=== PATIENT | female | born 1985 ===

== ENCOUNTER 2022-04-19 03:30 | Inpatient (IN) | payer BC ==
[~2022-04-19] VITALS: Ht 165.1 cm; Wt 97.1 kg
[2022-04-19] MEDS ORDERED: AMPICILLIN 2,000 MG in NACL 0.9% MINI-BAG PLUS 100 ML IV SCH (03:35)
[2022-04-19] MEDS ORDERED: METHYLERGONOVINE 0.2 MG/ML AMP IM PRN ×2 (03:35→11:35)
[2022-04-19] MEDS ORDERED: LACTATED RINGERS 500 ML IV SCH (03:35)
[2022-04-19] MEDS ORDERED: CARBOPROST 250 MCG/ML AMP IM PRN (03:35)
[2022-04-19] MEDS ORDERED: OXYTOCIN 20 UNITS in LACTATED RINGERS 1,000 ML IV SCH ×2 (03:35→11:35)
[2022-04-19] MEDS ORDERED: AMPICILLIN 2,000 MG VIAL ONE (03:40)
[2022-04-19 03:59] LABS: BASOPHILS # (AUTO) 0.1 K/uL (0.00-0.22); BASOPHILS % (AUTO) 0.6 % (0.0-2.0); EOSINOPHILS # (AUTO) 0.1 K/uL (0-0.4); EOSINOPHILS % (AUTO) 0.5 % (0.0-4.0); HEMATOCRIT 35.4 % (36-48); HEMOGLOBIN 11.7 g/dL (12.0-16.0); LYMPHOCYTES # (AUTO) 2.2 K/uL (2.5-16.5); MEAN CORPUSCULAR HEMOGLOBIN 27 pg (27-31); MEAN CORPUSCULAR HGB CONC 33 g/dL (33-37); MEAN CORPUSCULAR VOLUME 82.9 fL (80-94); MONOCYTES # (AUTO) 0.9 K/uL (0.8-1.0); MONOCYTES % (AUTO) 5.4 % (1.7-9.3); NEUTROPHILS # (AUTO) 12.7 K/uL (1.8-7.7); NEUTROPHILS % (AUTO) 79.5 % (42.2-75.2); PLATELET COUNT (AUTO) 324 K/uL (140-450); RED BLOOD CELL COUNT(AUTO) 4.26 MIL/uL (4.20-5.40); RED CELL DISTRIBUTION WIDTH 14.9 % (11.6-13.7); WHITE BLOOD COUNT (AUTO) 15.9 K/uL (4.8-10.8)
[2022-04-19 04:01] LABS: APPEARANCE,URINE CLEAR (CLEAR); BILIRUBIN,URINE NEGATIVE (NEGATIVE); BLOOD, URINE 1+ (NEGATIVE); COLOR,URINE YELLOW (YELLOW); LEUKOCYTE ESTERASE ,URINE NEGATIVE (NEGATIVE); NITRITE, URINE NEGATIVE (NEGATIVE); PH,URINE 6.5 (5.0-9.0); UGLUCOSE NEGATIVE (NEGATIVE)
[2022-04-19 04:12] LABS: RBC,URINE 0-5 /HPF (0-5)
[2022-04-19 04:13] LABS: BARBITURATE, URINE NEGATIVE ng/ml (NEG <=200); BENZODIAZEPINE, URINE NEGATIVE ng/mL (NEG <=200); CANNABINOID, URINE NEGATIVE ng/mL (NEG <=50); COCAINE, URINE NEGATIVE ng/mL (NEG <=300); OPIATE, URINE NEGATIVE ng/mL (NEG <=2000); PHENCYCLIDINE SCREEN,URINE NEGATIVE ng/mL (NEG <=25)
[2022-04-19 04:14] VITALS: BP 113/66
[2022-04-19 04:20] LABS: ALBUMIN 2.6 g/dL (3.4-5.0); ANION GAP 17.9 (8-16); CREATININE 0.7 mg/dL (0.6-1.3); POTASSIUM 3.9 mmol/L (3.5-5.1); PROTHROMBIN TIME 9.1 secs (10.8-13.4); TOTAL BILIRUBIN 0.2 mg/dL (0.0-1.0)
[2022-04-19] MEDS: LACTATED RINGERS 1,000 ML IV SCH ×2 (04:58→20:25)
[2022-04-19] MEDS: NALBUPHINE 10 MG/ML AMP IVP PRN ×2 (06:18→08:53)
[2022-04-19] MEDS ORDERED: AMPICILLIN 1,000 MG VIAL ONE (07:32)
[2022-04-19] MEDS ORDERED: OXYTOCIN 20 UNITS/LR PREMIX 1,000 ML IV ONE ×2 (07:33→17:50)
[2022-04-19] MEDS ORDERED: AMPICILLIN 1,000 MG in NACL 0.9% MINI-BAG PLUS 50 ML IV SCH (08:00)
[2022-04-19] MEDS ORDERED: CITRIC ACID/SODIUM CITRATE 30 ML UDC PO SCH (11:12)
[2022-04-19] MEDS ORDERED: KETOROLAC 30 MG/ML VIAL IVP PRN (11:35)
[2022-04-19] MEDS ORDERED: TEMAZEPAM 15 MG CAP PO PRN (11:35)
[2022-04-19] MEDS ORDERED: IBUPROFEN 800 MG TAB PO PRN (11:35)
[2022-04-19] MEDS ORDERED: oxyCODONE/APAP 5/325 MG 1 TAB TAB PO PRN (11:35)
[2022-04-19] MEDS ORDERED: ceFAZolin 2,000 MG VIAL ONE (11:36)
[2022-04-19] MEDS ORDERED: MORPHINE PRES FREE 10 MG/10 ML AMP IV ONE (11:57)
[2022-04-19] MEDS ORDERED: METOCLOPRAMIDE 10 MG/2 ML INJ VIAL IVP PRN (13:15)
[2022-04-19] MEDS ORDERED: ONDANSETRON 4 MG/2 ML VIAL IVP PRN (14:55)
[2022-04-19] MEDS ORDERED: diphenhydrAMINE 50 MG/ML VIAL IVP PRN (14:55)
[2022-04-19] MEDS ORDERED: NALOXONE 0.4 MG/ML VIAL IVP PRN ×3 (14:55)
[2022-04-19] MEDS ORDERED: NALBUPHINE 10 MG/ML AMP IVP PRN (14:55)
[2022-04-19] MEDS: KETOROLAC 30 MG/ML VIAL IM/IVP SCH (18:02)
[2022-04-19 20:57] LABS: BASOPHILS # (AUTO) 0.1 K/uL (0.00-0.22); BASOPHILS % (AUTO) 0.3 % (0.0-2.0); EOSINOPHILS % (AUTO) 0.2 % (0.0-4.0); HEMATOCRIT 29.5 % (36-48); HEMOGLOBIN 9.8 g/dL (12.0-16.0); LYMPHOCYTES # (AUTO) 2.3 K/uL (2.5-16.5); LYMPHOCYTES % (AUTO) 12.9 % (20.5-51.1); MEAN CORPUSCULAR HEMOGLOBIN 28 pg (27-31); MEAN CORPUSCULAR HGB CONC 33 g/dL (33-37); MEAN CORPUSCULAR VOLUME 84.2 fL (80-94); MONOCYTES # (AUTO) 0.9 K/uL (0.8-1.0); NEUTROPHILS # (AUTO) 14.6 K/uL (1.8-7.7); NEUTROPHILS % (AUTO) 81.6 % (42.2-75.2); PLATELET COUNT (AUTO) 267 K/uL (140-450); RED BLOOD CELL COUNT(AUTO) 3.51 MIL/uL (4.20-5.40); RED CELL DISTRIBUTION WIDTH 14.8 % (11.6-13.7); WHITE BLOOD COUNT (AUTO) 17.9 K/uL (4.8-10.8)
[2022-04-19] MEDS: DOCUSATE SOD/SENNA 50/8.6 MG 1 TAB PO SCH (21:00)
[2022-04-20] MEDS: KETOROLAC 30 MG/ML VIAL IM/IVP SCH ×2 (00:11→06:20)
[2022-04-20] MEDS ORDERED: OXYTOCIN 20 UNITS/LR PREMIX 1,000 ML IV ONE (02:56)
[2022-04-20 08:45] LABS: BASOPHILS % (AUTO) 0.2 % (0.0-2.0); EOSINOPHILS # (AUTO) 0.1 K/uL (0-0.4); EOSINOPHILS % (AUTO) 0.9 % (0.0-4.0); HEMOGLOBIN 8.7 g/dL (12.0-16.0); LYMPHOCYTES # (AUTO) 2.1 K/uL (2.5-16.5); LYMPHOCYTES % (AUTO) 15.2 % (20.5-51.1); MEAN CORPUSCULAR HEMOGLOBIN 28 pg (27-31); MEAN CORPUSCULAR HGB CONC 34 g/dL (33-37); MEAN CORPUSCULAR VOLUME 83.1 fL (80-94); MONOCYTES # (AUTO) 0.8 K/uL (0.8-1.0); MONOCYTES % (AUTO) 5.5 % (1.7-9.3); NEUTROPHILS # (AUTO) 10.8 K/uL (1.8-7.7); NEUTROPHILS % (AUTO) 78.2 % (42.2-75.2); PLATELET COUNT (AUTO) 238 K/uL (140-450); RED BLOOD CELL COUNT(AUTO) 3.12 MIL/uL (4.20-5.40); WHITE BLOOD COUNT (AUTO) 13.8 K/uL (4.8-10.8)
[2022-04-20] MEDS: SIMETHICONE 80 MG TAB.CHEW PO PRN ×2 (09:10→15:40)
--- NOTE | 2022-04-20 10:44 | NUR ---
PATIENT HAS BEEN SCREENED AND CATEGORIZED LOW NUTRITION RISK. PATIENT WILL BE SEEN WITHIN 7 DAYS OF ADMISSION. 04/26/22 REVIEWED BY ROSETTE AGUILA [address]
[2022-04-20] MEDS: oxyCODONE/APAP 5/325 MG 1 TAB TAB PO PRN (15:40)
[2022-04-20] MEDS: DOCUSATE SOD/SENNA 50/8.6 MG 1 TAB PO SCH (21:29)
[2022-04-21] MEDS ORDERED: CAMERA MC ONE (03:33)
[2022-04-21] MEDS: oxyCODONE/APAP 5/325 MG 1 TAB TAB PO PRN (04:12)
[2022-04-21] MEDS: SIMETHICONE 80 MG TAB.CHEW PO PRN (08:23)
== END 2022-04-21 14:25 | disposition home or self-care (01) | DRG 788 ==
LOC: MLD 03:30 → MFCC 13:30
PROVIDERS: ADMIT Obstetrics & Gynecology; ATTEND Obstetrics & Gynecology
PROC: 10D00Z1 Extraction of Products of Conception, Low, Open Approach (ICD-10-PCS; principal; 2022-04-19 11:45)
DX: O48.0 Post-term pregnancy (principal); Z20.822 Contact with and (suspected) exposure to COVID-19; Z3A.40 40 weeks gestation of pregnancy; Z37.0 Single live birth
CPT/HCPCS: 36415; 80053; 80305; 81001; 85025; 85610; 85730; 86592; 86886; 86900; 86901; 87086; 87653-90; J0290; J1885; J2210; J2270; J2300; J2590; J7120